=== PATIENT | female | born 1935 | race Caucasian/White ===

== ENCOUNTER 2016-06-16 15:01 | Emergency (ER) | payer MEDICAID, OTHER ==
[~2016-06-16] VITALS: Wt 90.0 kg
[~2016-06-16 15:01] MED LIST: ALBU8.5H3 INH; ASPI-664 PO; LOSA50TA6 PO; NABU-81 PO; NIT4 SL
[2016-06-16] MEDS ORDERED: AMLO2.5T78 PO (21:02)
--- NOTE | 2016-06-16 21:22 | RADRPT ---
PROCEDURE: XR Chest. CLINICAL INDICATION: Chest pain. TECHNIQUE: Portable AP upright view of the chest was obtained. COMPARISON: 05/25/2014 FINDINGS: The cardiomediastinal silhouette is enlarged. Diffuse prominence of the pulmonary interstitium nadiya ot exclude interstitial edema. Tiny bilateral pleural effusions are suggested. There is no evidenc e of pneumothorax. The osseous structures are intact with no evidence for acute abnormality. Calcif ication of the aorta is again visualized. RPTAT:HJJR IMPRESSION: Cardiomegaly with mild interstitial edema and tiny bilateral pleural effusions raises concern for co ngestive heart failure in the proper clinical setting. Physician Bhavin Date Time Electronically viewed and signed by Physician Bhavin on 06/16/2016 21:22 /
[2016-06-16 21:27] LABS: POTASSIUM 3.8 mmol/L (3.5-5.1)
[2016-06-16 21:30] LABS: CREATININE 0.59 mg/dl (0.44-1.00)
[2016-06-16] MEDS ORDERED: METHYLPREDNISOLONE 40 MG INJ IV ONE ×2 (21:30)
[2016-06-16] MEDS ORDERED: BUPIVACAINE 0.25% (MPF) 10 ML 10 ML VIAL INJ ONE (21:30)
[2016-06-16 21:31] LABS: CALCIUM 9.6 mg/dl (8.4-10.2)
[2016-06-16 21:41] LABS: BASOPHIL # 0.1 10^3/ul (0.0-0.1); BASOPHILS % 0.8 % (0.0-2.0); EOSINOPHILS # 0.2 10^3/ul (0.0-0.5); EOSINOPHILS % 2.8 % (0.0-7.0); HEMATOCRIT 33.1 % (37.0-47.0); HEMOGLOBIN 10.7 g/dl (12.0-16.0); LYMPHOCYTES % 42.1 % (15.0-51.0); MEAN CORPUSCULAR HEMOGLOBIN 25.8 pg (29.0-33.0); MEAN CORPUSCULAR HGB CONC 32.3 g/dl (32.0-37.0); MEAN CORPUSCULAR VOLUME 79.9 fl (82.0-101.0); MEAN PLATELET VOLUME 8.7 fl (7.4-10.4); MONOCYTE # 0.5 10^3/ul (0.3-0.9); MONOCYTES % 7.1 % (0.0-11.0); NEUTROPHIL # 3.4 10^3/ul (1.6-7.5); NEUTROPHILS % 47.2 % (39.0-77.0); PLATELET COUNT 352 10^3/UL (140-440); RED BLOOD COUNT 4.15 10^6/ul (4.20-5.40); RED CELL DISTRIBUTION WIDTH 16.6 % (11.5-14.5); UNCORRECTED WBC 7.2 10^3/ul (4.8-10.8); WHITE BLOOD COUNT 7.2 10^3/ul (4.8-10.8)
[2016-06-16 21:42] LABS: CONDITION 1; LH ANALYZER COMMENTS 1; TROPONIN-I 0.019 ng/ml (0.00-0.12)
[2016-06-16] MEDS ORDERED: FUROSEMIDE 40 MG INJ IV ONE (22:30)
[2016-06-16] MEDS ORDERED: TRAM50TA2 PO (23:34)
[2016-06-16] MEDS ORDERED: AMLO-218 PO (23:34)
--- NOTE | 2016-06-16 23:42 | ERD ---
ER Documentation Chief Complaint Date/Time DATE: 06/16/16 TIME: 23:35 Chief Complaint Left shoulder pain 2 months, left knee pain chronic HPI This is a 81-year-old female with a history of diffuse arthritis is complaining of chronic left knee pain. The patient states she came in today because her knee pain is worse than usual. She uses a cane to walk and uses a cane in the right hand. She complains of sharp pain in the left knee when she walks. No swelling no redness of the knee. She also complains of 2 months of pain to the lateral deltoid region on the left as well. Pain is worse with movement better with rest so is the knee. She has no chest pain no shortness of breath however the family states they have noticed lately when she walks she does tend to get out of breath. She has no orthopnea. No abdominal pain nausea vomiting diarrhea or fever ROS All systems reviewed and are negative except as per history of present illness. Medications Home Meds Active Scripts Tramadol HCl (Tramadol HCl) 50 Mg Tablet, 50 MG PO Q8H Y for PAIN, #20 TAB Prov:SILVA JOSHUA DO 06/16/16 Amlodipine Besylate* (Norvasc*) 10 Mg Tablet, 10 MG PO DAILY, #30 TAB Prov:SILVA JOSHUA DO 06/16/16 Reported Medications Amlodipine Besylate* (Amlodipine Besylate*) 2.5 Mg Tablet, 2.5 MG PO DAILY, #30 TAB 06/16/16 Aspirin* (Aspirin* EC) 81 Mg Tablet.dr, 81 MG PO DAILY, TAB 05/25/14 Discontinued Reported Medications Albuterol Sulfate* (Proair HFA*) 8.5 Gm Hfa.aer.ad, 2 PUFF INH Q4H Y for WHEEZING AND SOB, INH 05/25/14 Nitroglycerin* (Nitrostat*) 0.4 Mg Tab.subl, 0.4 MG SL Q5MIN Y for CHEST PAIN, BOTTLE 05/25/14 Nabumetone* (Nabumetone*) 500 Mg Tablet, 500 MG PO BID Y for PAIN, TAB 05/25/14 Losartan Potassium* (Losartan Potassium*) 50 Mg Tablet, 50 MG PO DAILY, TAB 05/25/14 Allergies Allergies: Coded Allergies: No Known Allergy (Unverified , 06/16/16) PMhx/Soc History of Surgery: Yes (Shoulder & Back Surgery) Anesthesia Reaction: No Hx Neurological Disorder: No Hx Respiratory Disorders: Yes (CHRONIC BRONCHITIS) Hx Cardiac Disorders: Yes (HTN) Hx Psychiatric Problems: No Hx Miscellaneous Medical Probl: Yes Hx Alcohol Use: No Hx Substance Use: No Hx Tobacco Use: No Smoking Status: Never smoker FmHx Family History: No coronary disease Physical Exam Vitals Vital Signs Date Time Temp Pulse Resp B/P Pulse Ox O2 Delivery O2 Flow Rate FiO2 06/16/16 20:10 Nasal Cannula 2 06/16/16 20:03 98.4 65 16 168/97 99 Nasal Cannula 2.0 06/16/16 15:09 98.7 86 20 192/96 Physical Exam Const: Well-developed, well-nourished Head: Atraumatic, normocephalic Eyes: Normal Conjunctiva, PERRLA, EOMI, normal sclera, no nystagmus ENT: Normal External Ears, Nose and Mouth, moist mucus membranes. Neck: Full range of motion. No meningismus, no lymphadenopathy. Resp: Clear to auscultation bilaterally, no wheezing, rhonchi, rales Cardio: Regular rate and rhythm, no murmurs, S1 S2 present Abd: Soft, non tender x 4, non distended. Normal bowel sounds, no guarding or rebound, no pulsitile abdominal masses or bruits Skin: No petechiae or rashes, no ecchymosis , no maculopapular rash Back: No midline or flank tenderness Ext: No cyanosis, or edema, FROM x 4,, there is tenderness at the left lateral shoulder/deltoid region at the inferior portion. Is tender with palpation and worse with range of motion. There is no pain in the shoulder joint., There is also tenderness in the joint space of the left knee with gross osteoarthritis on exam. No ligamentous laxity no swelling no signs of septic knee. Normal inspection, neurovascularly intact x 4 Neur: Awake and alert, STR 5/5 x 4, sensation intact x 4, no focal findings, cerebellum intact Psych: Normal Mood and Affect Result Diagram: 06/16/16202906/16/16 2030 Results 24 hrs Laboratory Tests Test 06/16/16 20:30 Anion Gap 17 B-Type Natriuretic Peptide 79PG/ML Basophils # 0.110^3/ul Basophils % 0.8% Blood Morphology Comment Blood Urea Nitrogen 14mg/dl Calcium Level 9.6mg/dl Carbon Dioxide Level 25mmol/L Chloride Level 103mmol/L Creatinine 0.59mg/dl Eosinophils # 0.210^3/ul Eosinophils % 2.8% Glucose Level 131mg/dl Hematocrit 33.1% Hemoglobin 10.7g/dl Lymphocytes # 3.010^3/ul Lymphocytes % 42.1% Mean Corpuscular Hemoglobin 25.8pg Mean Corpuscular Hemoglobin Concent 32.3g/dl Mean Corpuscular Volume 79.9fl Mean Platelet Volume 8.7fl Monocytes # 0.510^3/ul Monocytes % 7.1% Neutrophils # 3.410^3/ul Neutrophils % 47.2% Nucleated Red Blood Cells # 0.010^3/ul Nucleated Red Blood Cells % 0.0/100WBC Platelet Count 53923^3/UL Potassium Level 3.8mmol/L Red Blood Count 4.1510^6/ul Red Cell Distribution Width 16.6% Sodium Level 141mmol/L Troponin I 0.019ng/ml White Blood Count 7.210^3/ul Current Medications Medications (Trade) Dose Ordered Sig/Eryn Route PRN Reason Start Time Stop Time Status Last Admin Dose Admin Methylprednisolone Sodium Succinate (Solu-Medrol) 40 mg ONCE ONCE IV 06/16/16 21:30 06/16/16 21:31 DC Methylprednisolone Sodium Succinate (Solu-Medrol) 40 mg ONCE ONCE IV 06/16/16 21:30 06/16/16 21:31 DC Bupivacaine HCl (Marcaine 0.25% (Mpf) 10 ml) 10 ml ONCE ONCE INJ 06/16/16 21:30 06/16/16 21:31 DC Furosemide (Lasix) 40 mg ONCE ONCE IV 06/16/16 22:30 06/16/16 22:31 DC 06/16/16 23:30 Nicardipine HCl (Cardene) 30 mg ONCE ONCE PO 06/17/16 00:00 06/17/16 00:01 Hydralazine HCl (Apresoline) 5 mg ONCE ONCE IV 06/17/16 00:00 06/17/16 00:01 [facility] EKG: Rate/Rhythm: Normal sinus rhythm heart rate 60, inferior Q waves QRS, ST, QT: NORMAL CO, QRS, QT] Impression: Abnormal l EKG] PROCEDURE: XR Chest. CLINICAL INDICATION: Chest pain. TECHNIQUE: Portable AP upright view of the chest was obtained. COMPARISON: 05/25/2014 FINDINGS: The cardiomediastinal silhouette is enlarged. Diffuse prominence of the pulmonary interstitium cannot exclude interstitial edema. Tiny bilateral pleural effusions are suggested. There is no evidence of pneumothorax. The osseous structures are intact with no evidence for acute abnormality. Calcification of the aorta is again visualized. RPTAT:HJJR IMPRESSION: Cardiomegaly with mild interstitial edema and tiny bilateral pleural effusions raises concern for congestive heart failure in the proper clinical setting. Eron Maria Physician Date Time Electronically viewed and signed by Eron Maria Physician on 06/16/2016 21:22 JR/ CC: SILVA JOSHUA DO Joint injection by me: Patient consented skin prepped Anesthesia: None Location: [Left knee] Technique: 22 gauge needle injection Results: Injected 5 mL of 40 mg of Solu-Medrol with 0.25% Marcaine Complications: . No complications. Patient apparently has been out of blood pressure medication for the past few days. The patient's blood pressure is elevated. Will treat with Cardene, and hydralazine IV. We will also give a dose of Lasix. The patient's BNP and troponin are negative. There is however some small amount of interstitial edema on her chest x-ray. The patient is slightly symptomatic when she walks but has no orthopnea. The patient's oxygen saturation on room air is 97. I will give her a dose of Lasix for diuresis she will need to follow-up. We will refill her Norvasc for blood pressure control She will be discharged home when her blood pressure is acceptable with Ultram for pain and Norvasc refill Departure Diagnosis: Primary Impression: Uncontrolled hypertension Additional Impression: Arthritis Condition: Stable Patient Instructions: What Is Arthritis?, Hypertension, Established SILVA JOSHUA DO Jun 16, 2016 23:42
[2016-06-17] MEDS ORDERED: NICARDipine HCL 30 MG CAPSULE PO ONE
[2016-06-17] MEDS ORDERED: hydrALAzine 20 MG INJ IV ONE
[2016-06-17 01:23] VITALS: BP 109/74; PULSE 83; RESP 20; TEMP 98
== END 2016-06-17 01:30 | disposition home or self-care (01) ==
LOC: E/R 15:01
DX: I10 Essential (primary) hypertension (principal); M19.90 Unspecified osteoarthritis, unspecified site; Z79.82 Long term (current) use of aspirin
CPT/HCPCS: 20610; 36415; 71010; 80048; 83880; 84484; 85025; 93005; 96374; 96375; 99285; J0360; J1940; J2920